=== PATIENT | male | born 1990 | race Caucasian/White ===

== ENCOUNTER 2017-10-30 19:23 | Emergency (ER) | payer BC ==
[2017-10-30] MEDS ORDERED: HYDROmorphone 0.5 MG/0.5 ML SYRINGE IVPUSH STA ×2 (20:22→22:58)
[2017-10-30] MEDS ORDERED: Ondansetron 4 MG/2 ML SDV IVPUSH ONE (20:23)
--- NOTE | 2017-10-30 20:29 | EDM.PDOC ---
ED HPI GENERAL MEDICAL PROBLEM - General Chief Complaint: ENT Problem Stated Complaint: SOB TIGHTNESS IN THROAT Time Seen by Provider: 10/30/17 20:05 Source of Information: Reports: Patient, Family (Father) History Limitations: Reports: No Limitations - History of Present Illness INITIAL COMMENTS - FREE TEXT/NARRATIVE: The patient states that he has had a sore throat and right earache for the past 3 days. He states that it hurts a lot to swallow. He was not aware that he had a fever, but his temperature is found to be 100.8 here in the ED. The patient notes that he had left-sided epistaxis yesterday. No recent nausea, vomiting, constipation, or diarrhea. No recent cough. No contacts with similar complaints of a sore throat. The patient states that he has had a sore throat the past, but nothing like this. The patient states that he took ibuprofen, Tylenol Cold, Claritin, and Benadryl , without any relief. The patient does not have a PCP. Throat Pain Score (Numeric/FACES): 5 - Related Data Allergies Allergy/AdvReac Type Severity Reaction Status Date / Time No Known Allergies Allergy Verified 10/30/17 19:43 Home Meds: Home Meds . [No Known Home Meds] 10/30/17 [History] Past Medical History Endocrine/Metabolic History: Reports: Obesity/BMI 30+ - Past Surgical History HEENT Surgical History: Reports: Adenoidectomy (as a child), Tonsillectomy (as a child) Male Surgical History: Reports: Other (See Below) (Bladder reflux surgery as a child) Social & Family History - Tobacco Use Smoking Status *Q: Never Smoker - Alcohol Use Alcohol Use History: No - Recreational Drug Use Recreational Drug Use: No - Living Situation & Occupation Living situation: Reports: Single, with Family Occupation: Employed ([employer]) ED ROS ENT - Review of Systems Review Of Systems: ROS reveals no pertinent complaints other than HPI. ED EXAM, ENT - Physical Exam Exam: See Below Exam Limited By: No Limitations General Appearance: Alert, WD/WN, Mild Distress (Appears uncomfortable) Eye Exam: Bilateral Eye: Normal Inspection Ears: Normal External Exam, Normal Canal, Hearing Grossly Normal, Normal TMs Nose: Normal Inspection, Normal Mucousa, No Blood Mouth/Throat: Normal Gums, Normal Lips, Normal Teeth, Other (Very limited his ability to the posterior oropharynx, even with pressing the tongue blade down on the patient's tongue firmly and having the patient try to sing a high note, as the patient's Mallampati score is IV. No visible abnormality from what is seen.) Head: Atraumatic, Normocephalic Neck: Normal Inspection, Supple, Full Range of Motion, Other (No lymphadenopathy , but submandibular redness is present). No: Lymphadenopathy (L), Lymphadenopathy (R) Respiratory/Chest: No Respiratory Distress, Lungs Clear, Normal Breath Sounds, No Accessory Muscle Use. No: Decreased Breath Sounds, Crackles, Rales, Wheezing , Stridor, Prolonged Expiration Cardiovascular: Normal Peripheral Pulses, Regular Rate, Rhythm, No Edema, No Gallop, No JVD, No Murmur, No Rub GI/Abdominal: Normal Bowel Sounds, Soft, Non-Tender, No Organomegaly, No Distention, No Abnormal Bruit, No Mass, Other (Obese) (Male) Exam: Deferred Rectal (Males) Exam: Deferred Back: Normal Inspection, Full Range of Motion Extremities: Normal Inspection, Normal Range of Motion, No Pedal Edema, Normal Capillary Refill Neurological: Alert, Oriented, Normal Cognition, No Motor/Sensory Deficits Psychiatric: Normal Affect Skin: Warm, Dry, Intact, Normal Color, No Rash Course - Vital Signs Last Recorded V/S: Last Vital Signs Temp 38.2 C H 10/30/17 19:43 Pulse 99 10/30/17 22:45 Resp 18 10/30/17 22:45 BP 153/83 H 10/30/17 22:45 Pulse Ox 98 10/30/17 22:45 - Orders/Labs/Meds Orders: Active Orders 24 hr Category Date Time Status Soft Tissue Neck w Cont [CT] Stat Exams 10/30/17 20:21 Taken CULTURE STREP A CONFIRMATION [RM] Stat Lab 10/30/17 19:47 Results Rapid Strep w/culture conf [STREP SCRN A RAPID W CULT Lab 10/30/17 19:47 Results CONF] [] Stat Labs: Laboratory Tests 10/30/17 10/30/17 Range/Units 21:05 21:05 WBC 15.30 H (4.23-9.07) K/mm3 RBC 4.80 (4.63-6.08) M/mm3 Hgb 15.0 (13.7-17.5) gm/L Hct 44.3 (40.1-51.0) % MCV 92.3 H (79.0-92.2) fl MCH 31.3 (25.7-32.2) pg MCHC 33.9 (32.2-35.5) g/dl RDW Std Deviation 41.2 (35.1-43.9) fL Plt Count 289 (163-337) K/mm3 MPV 9.3 L (9.4-12.3) fl Neutrophils % (Manual) 77 H (40-60) % Band Neutrophils % 1 (0-10) % Lymphocytes % (Manual) 12 L (20-40) % Atypical Lymphs % 0 % Monocytes % (Manual) 7 (2-10) % Eosinophils % (Manual) 1 (0.8-7.0) % Basophils % (Manual) 2 H (0.2-1.2) Platelet Estimate Adequate RBC Morph Comment Normal Sodium 138 (136-145) mEq/L Potassium 3.9 (3.5-5.1) mEq/L Chloride 103 (98-107) mEq/L Carbon Dioxide 26 (21-32) mEq/L Anion Gap 12.9 (5-15) BUN 17 (7-18) mg/dL Creatinine 1.1 (0.7-1.3) mg/dL Est Cr Clr Drug Dosing TNP Estimated GFR (MDRD) > 60 (>60) mL/min BUN/Creatinine Ratio 15.5 (14-18) Glucose 105 (74-106) mg/dL Calcium 8.2 L (8.5-10.1) mg/dL Total Bilirubin 0.5 (0.2-1.0) mg/dL AST 22 (15-37) U/L ALT 39 (16-63) U/L Alkaline Phosphatase 59 (46-116) U/L Total Protein 7.4 (6.4-8.2) g/dl Albumin 4.0 (3.4-5.0) g/dl Globulin 3.4 gm/dL Albumin/Globulin Ratio 1.2 (1-2) Meds: Medications Discontinued Medications Generic Name Dose Route Start Last Admin Trade Name Freq PRN Reason Stop Dose Admin Hydromorphone HCl 1 mg 10/30/17 20:22 10/30/17 20:51 Dilaudid IVPUSH 10/30/17 20:23 1 mg ONETIME STA Administration Hydromorphone HCl 1 mg 10/30/17 22:58 10/30/17 23:18 Dilaudid IVPUSH 10/30/17 22:59 1 mg ONETIME STA Administration Sodium Chloride 1,000 mls @ 150 mls/hr 10/30/17 20:30 10/30/17 20:49 Normal Saline IV 150 mls/hr ASDIRECTED DINO Administration Piperacillin Sod/Tazobactam 100 mls @ 200 mls/hr 10/30/17 22:25 10/30/17 22: 39 Sod 4.5 gm/ Sodium Chloride IV 10/30/17 22:54 200 mls/hr ONETIME ONE Administration Iopamidol 80 ml 10/30/17 20:46 10/30/17 21:02 Isovue-300 (61%) IVPUSH 10/30/17 20:47 80 ml ONETIME ONE Administration Methylprednisolone Sodium Succinate 125 mg 10/30/17 22:24 10/30/17 22:36 Solu-Medrol IVPUSH 10/30/17 22:25 125 mg ONETIME ONE Administration Ondansetron HCl 4 mg 10/30/17 20:23 10/30/17 20:50 Zofran IVPUSH 10/30/17 20:24 4 mg ONETIME ONE Administration Sodium Chloride 10 ml 10/30/17 20:46 10/30/17 21:03 Saline Flush FLUSH 10/30/17 20:47 10 ml ONETIME ONE Administration - Re-Assessments/Exams Free Text/Narrative Re-Assessment/Exam: 10/30/17 20:26 The patient's strep test has returned negative, which is not surprising, since he had his tonsils and adenoids removed as a child. The patient states that he is having difficulty swallowing, and he has a low-grade fever here in the ED. His Mallampati score is 4, and even with a tongue blade, it is impossible to get a good look at his soft palate. I'm concerned that patient has peritonsillar cellulitis or an abscess. I'm therefore recommending a CT scan of the neck soft tissue. The patient has agreed. 10/30/17 22:11 CT of the neck soft tissue with IV contrast is read by [facility] as: Abnormal soft tissue thickening of the right oropharyngeal region with a low attenuation focus which measures 1.4 x 1.8 x 2.2 cm consistent with a parapharyngeal abscess extending laterally to but not involving the right carotid sheath structures and posteriorly to the longus colli muscle complex without transgressing the fascial plane. Abscess dissects inferiorly and effaces the right piriform sinus and compresses the right lateral wall of the laryngeal airway. 10/30/17 22:13 I would like to discuss this case with ENT. I have pushed the CT images to [facility]. 10/30/17 22:[address] Ramsey Diaz, ENT at [facility], at 22:13. He would like us to give the patient IV Solu-Medrol and start the patient on Zosyn immediately. The patient will require admission to the hospital for a few days for IV antibiotics. He would not be the primary, but is willing to be on consult , if needed. Case then discussed with Dr. Steve, Emergency Physician at [facility] , at 22:22. He accepts the patient for transfer to their ED. The patient will be transferred by private vehicle, however, we can leave the IV in. The patient will be instructed to go directly to [place] and not stop anywhere. 10/30/17 22:[address] Steve at 22:37. He discussed the case with Dr. Diaz, who expressed concern about the patient's airway and being transferred by private vehicle. It is not clear if Dr. Diaz reviewed the CT scan or not. I relayed this information to the patient. The patient's father left to get gasoline. The patient wishes to discuss the case with his father before deciding. 10/30/17 22:52 The patient does not want to go by ambulance, citing lack of insurance and cost. We will transfer him by private vehicle as soon as the Zosyn has finished infusing. Departure - Departure Time of Disposition: 22:25 Disposition: DC/Tfer to Acute Hospital 02 Condition: Fair Clinical Impression: Parapharyngeal abscess - Discharge Information Additional Instructions: You were seen in the emergency room for a sore throat and right earache. Workup in the ER included a rapid strep test, bloodwork, and a CT scan of the soft tissue of your neck. The CT scan confirmed that you have a parapharyngeal abscess. You were given IV steroids and IV Zosyn (an antibiotic) in the ER. You will require several days of IV antibiotics. You have been accepted admission to [facility]. Go directly to the [facility] ER. Do not stop anywhere. They will be expecting you. - My Orders Last 24 Hours: My Active Orders 10/30/17 19:47 Rapid Strep w/culture conf [STREP SCRN A RAPID W CULT CONF] [RM] Stat 10/30/17 20:21 Soft Tissue Neck w Cont [CT] Stat - Assessment/Plan Last 24 Hours: My Active Orders 10/30/17 19:47 Rapid Strep w/culture conf [STREP SCRN A RAPID W CULT CONF] [RM] Stat 10/30/17 20:21 Soft Tissue Neck w Cont [CT] Stat
[2017-10-30] MEDS ORDERED: Sodium Chloride 0.9% 1,000 ML IV SCH (20:30)
[2017-10-30] MEDS ORDERED: Sodium Chloride 0.9% 10 ML Syringe FLUSH ONE (20:46)
[2017-10-30] MEDS ORDERED: Iopamidol 612 MG/ML 100 ML Bottle IVPUSH ONE (20:46)
[2017-10-30] MEDS ORDERED: methylPREDNISolone Sodium Succinate 125 MG/2 ML SDV IVPUSH ONE (22:24)
[2017-10-30] MEDS ORDERED: Piperacillin/Tazobactam 4.5 GM in Sodium Chloride 0.9% 100 ML IV ONE (22:25)
--- NOTE | 2017-10-31 08:29 | CT ---
CT neck Technique: Multiple axial sections were obtained from above the external auditory canals inferiorly to the lung apices. Intravenous contrast was utilized. Reconstructed coronal and sagittal images were obtained. Comparison: No prior neck exam. Findings: Low density is noted within the right parapharyngeal soft tissues primarily within the peritonsillar region. Findings are suspicious for edema and probable small peritonsillar abscess. This finding extends lateral but does not involve the carotid sheath. This finding also extends along the longus colli muscle to involve the right piriform sinus. No left-sided findings are seen. Small lymph nodes are seen believed to be within normal limits. Right and left globes are symmetric. Paranasal sinuses are clear. Parotid and submandibular salivary glands are within normal limits. Visualized lung apices are clear. Thyroid gland appears within normal limits. Bone window settings were reviewed which appear within normal limits for the patient's age. Impression: 1. Mild low density within the right parapharyngeal soft tissues with its epicenter in the peritonsillar region extending slightly superior and inferior as well as laterally. This low density is compatible with infection and probable abscess. 2. No additional abnormality is seen. Diagnostic code #5 I agree with preliminary report from [facility], finalized at 10/30/17, 10:46 PM Central Time
== END 2017-10-30 23:35 ==
LOC: JD.ED 19:23
DX: J39.1 Other abscess of pharynx (principal)
CPT/HCPCS: 36415; 70491; 80053; 85007; 85027; 87081; 87430; 96361; 96365; 96375; 96376; 99285; J1170; J2405; J2543; J2930; J7030; J7040; J7050; Q9967